=== PATIENT | female | born 1960 | race Caucasian/White ===

== ENCOUNTER → 2017-01-24 10:31 | Outpatient (CLI) | payer MEDICAID ==
[2014-03-09 12:27] VITALS: BMI 26.2
[~2017-01-24 10:31] MED LIST: ACCUNEB0.63 MG/3 INH; BAYER CHEWABLE81 MG PO; ESTRACE 0.5 MG0.5 MG PO; HYDROCODONE-APA1 TAB PO; LEVOXYL125 MCG PO; LIPITOR10 MG PO; LOPRESSOR25 MG PO; MIRALAX17 GM PO; MULTIPLE VITAMI1 TA1 PO; PRILOSEC10 MG PO; PROAIR HFA8.5 GM INH; SINGULAIR10 MG PO; SYMBICORT 16010.2 GM INH; XANAX1 MG PO; ZANAFLEX4 MG PO
== END | disposition home or self-care (01) ==
LOC: D.CT 10:30
DX: Z85.850 Personal history of malignant neoplasm of thyroid (principal); R91.1 Solitary pulmonary nodule

== ENCOUNTER 2017-04-29 09:41 | Outpatient (CLI) | payer MEDICAID ==
[2014-03-09 12:27] VITALS: BMI 26.2
== END 2017-04-29 13:25 ==
LOC: D.MAMMO 09:41
DX: Z12.31 Encounter for screening mammogram for malignant neoplasm of breast (principal)

== ENCOUNTER → 2017-07-14 16:06 | Outpatient (CLI) | payer MEDICAID ==
[2014-03-09 12:27] VITALS: BMI 26.2
== END | disposition home or self-care (01) ==
LOC: D.MAMMO 05-29 09:30
DX: R92.2 Inconclusive mammogram (principal)

== ENCOUNTER → 2018-07-09 12:47 | Outpatient (CLI) | payer MEDICAID ==
[2014-03-09 12:27] VITALS: BMI 26.2
== END | disposition home or self-care (01) ==
LOC: D.CT 12:47
DX: C73 Malignant neoplasm of thyroid gland (principal)

== ENCOUNTER → 2020-02-17 13:07 | Outpatient (CLI) | payer MEDICAID ==
[2014-03-09 12:27] VITALS: BMI 26.2
== END | disposition home or self-care (01) ==
LOC: D.CT 13:00
PROVIDERS: ATTEND Internal Medicine Pulmonary Disease
DX: R91.1 Solitary pulmonary nodule (principal); C73 Malignant neoplasm of thyroid gland

== ENCOUNTER → 2020-11-17 08:52 | Outpatient (CLI) | payer MEDICAID ==
[2014-03-09 12:27] VITALS: BMI 26.2
== END | disposition home or self-care (01) ==
LOC: D.LAB 08:52
PROVIDERS: ATTEND Internal Medicine Pulmonary Disease
DX: Z20.822 Contact with and (suspected) exposure to COVID-19 (principal)

== ENCOUNTER → 2020-11-22 09:26 | Outpatient (CLI) | payer MEDICAID ==
[2014-03-09 12:27] VITALS: BMI 26.2
== END | disposition home or self-care (01) ==
LOC: D.RT 09:26
PROVIDERS: ATTEND Internal Medicine Pulmonary Disease
DX: J44.9 Chronic obstructive pulmonary disease, unspecified (principal); Z20.822 Contact with and (suspected) exposure to COVID-19